=== PATIENT | male | born 1945 | race Caucasian/White ===

== ENCOUNTER → 2023-12-20 06:55 | Outpatient (REF) | payer MEDICARE, OTHER, SELFPAY | LOC: RAD 06:55 | PROVIDERS: ATTENDING PHYSICIAN Internal Medicine Critical Care Medicine; FAMILY PHYSICIAN Emergency Medicine | DX: R91.1 Solitary pulmonary nodule (principal) | CPT/HCPCS: 71250 ==

== ENCOUNTER 2024-05-17 22:28 | Inpatient (IN) | payer MEDICARE, OTHER, SELFPAY ==
[2024-05-17 20:48] VITALS: BP 130/75; BMI 26.5
[2024-05-17 20:59] LABS: Glucose - Point of Care 99 mg/dl (70-99)
[2024-05-17 21:08] LABS: % Basophils 0.6 % (0-2); % Eosinophils 4.6 % (0-6); % Immature Granulocytes 0.2 % (0-0.5); % Lymphocytes 27.9 % (20.5-51.1); % Monocytes 11.2 % (1.7-9.3); % Neutrophils 55.5 % (42.2-75.2); Absolute Basophils 0.1 10^3/uL (0-0.2); Absolute Eosinophils 0.4 10^3/uL (0-0.7); Absolute Lymphocytes 2.2 10^3/uL (1.2-3.4); Absolute Monocytes 0.9 10^3/uL (0.1-0.6); Absolute Neutrophils 4.4 10^3/uL (1.4-6.5); Hematocrit 42.7 % (39.0-52.0); Hemoglobin 15.5 g/dL (13.0-18.0); Mean Corp Hgb Conc. 36.3 g/dL (33.0-37.0); Mean Corpuscular Hgb 32.3 pg (27.0-31.0); Mean Platelet Volume 9.1 fL (7.4-10.4); Nucleated Red Blood Cells % 0 % (-); Platelet Count 177 10^3/uL (130-400); Red Cell Dist. Width 12.6 % (11.5-14.5)
--- NOTE | 2024-05-17 21:15 | ED.CVA ---
History of Present Illness
General
Chief Complaint: CVA/TIA Symptoms
Source: patient
Time Seen by Provider: 05/17/24 20:53
Nursing documentation reviewed up to this point in time: agreed with
Onset of Stroke Symptoms
Onset of symptoms known: Yes
Date of onset of symptoms: 05/17/24
History of Present Illness
History of Present Illness:
Pleasant 78-year-old male who presents with expressive aphasia. He took a nap around 7 PM. Awakened around 8 and could not find words to express himself. He states that this lasted approximately 20 minutes and then that resolved. Patient is not
on any blood thinners. Patient did have a fall last week from a syncopal episode and hit his head. He states that he has been fine ever since. Denies headaches. Patient is on antihypertensive medication. Denies any other medications.
Vital signs are stable. Patient not hypoxic
Nursing note reviewed. I agree with nursing documentation up to this point in time.
Home Meds and allergies reviewed.
NUMBER AND COMPLEXITY OF PROBLEMS ADDRESSED AT THE ENCOUNTER
� Chronic conditions affecting care: Hypertension
� Acute Exacerbation and/or Progression of Chronic Illness: New onset atrial fibrillation
� Differential Diagnosis includes: Expressive aphasia, CVA, TIA
AMOUNT AND/OR COMPLEXITY OF DATA TO BE REVIEWED AND ANALYZED
I performed an independent evaluation of the following and my interpretation is:
EKG: EKG shows atrial fibrillation with rapid ventricular response. Rate of 118. No evidence of acute ischemia present.
CT:
CT head
IMPRESSION:
No acute intracranial hemorrhage, mass or mass-effect.
Diffuse atrophy with ventriculomegaly.
CT angiogram head and neck
IMPRESSION:
Angiogram head:
No major arterial vascular occlusion.
No focal aneurysm.
Venous sinuses are patent.
Angiogram neck:
No major arterial vascular occlusion.
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 Mild fusiform dilatation of the carotid bulbs bilaterally. No hemodynamically significant stenosis, dissection or aneurysm.
Degenerative changes of the spine.
Emphysema of visualized upper lungs
X-rays:
Ultrasound:
Laboratory Studies:
BUN/creatinine normal
Other:
Review of other/old records: Colonoscopy report from 07/03/2018.
Clinical information was obtained by an independent historian:
Prescriptions/Medications Considered but not given: TNK not given as symptoms had resolved.
Further testing considered but not performed:
RISK OF COMPLICATIONS AND/OR MORBIDITY OR MORTALITY OF PATIENT MANAGEMENT
Social determinants of health affecting care: Good Social Support
Discussion with other providers: Dr. David Mishra neurologist who agreed with the plan. He suggested we give Eliquis due to the new onset atrial fibrillation. He does not feel that this person is a TNK candidate based on the
resolution of symptoms.
Escalation of care including admission/observation vs risk of discharge considered: Patient to be admitted to the hospital service. Expressive aphasia
CRITICAL CARE NOTE:
Total Time (exclusive of procedures):
Update:
Review of Systems
Review of Systems
Allergies reviewed?: Yes
Other source history: family
All Other Systems: Not applicable
Constitutional: Reports no symptoms
EENT: Reports no symptoms
Respiratory: Reports no symptoms
Cardiac: Reports no symptoms
ABD/GI: Reports no symptoms
: Reports no symptoms
Musculoskeletal: Reports no symptoms
Skin: Reports no symptoms
Neurological: Reports other (Aphasia); Denies headache, weakness or numbness
Endocrine: Reports no symptoms
Hematologic/Lymphatic: Reports no symptoms
Psychiatric: Reports no symptoms
Phy Exam
General Physical Exam
General Presentation: well appearing and no apparent distress
General Skin: warm and dry
General Habitus: normal
General Mental: alert
General Hydration: appears well hydrated
ENT Exam
ENT Exam: EOMI, pharynx normal, neck supple and normocephalic
Eye Exam
Eye Exam: PERRL, cornea clear and conjunctiva normal
Cardiovascular Exam
Cardiovascular Exam: no edema, no murmur, normal peripheral pulses and irregularly irregular
Pulmonary Exam
Pulmonary Exam: lungs clear, no respiratory distress, no rales, no crackles, no rhonchi, no stridor, no wheezing and no cough
Gastrointestinal Exam
Gastrointestinal Exam: normal bowel sounds, non tender, soft, no organomegaly, no pulsatile mass and non distended
Neurological Exam
Neurological Exam: alert, oriented x3, no motor deficits and speech normal
Musculoskeletal Exam
Musculoskeletal Exam: full ROM and no edema
Skin Exam
Skin Exam: normal color, warm/dry, no rash and no petechia
Psychiatric Exam
Psychiatric Exam: normal mood/affect
Scores
NIH Stroke Score
Level of Consciousness: 0 - Alert
LOC Questions: 0-Answers both correctly
LOC Commands: 0-Performs both correctly
Best Horizontal Gaze: 0-Normal
Visual Anguiano: 0=Normal, no visual loss
Facial Palsy: 0=Normal, symmetrical
Motor - Right Arm: 0=No drift 10 seconds
Motor - Left Arm: 0=No drift 10 seconds
Motor - Right Le-No drift 5 seconds
Motor - Left Le-No drift 5 seconds
Limb Ataxia: 0-Absent
Sensation: 0-Normal
Best Language: 1-Mild aphasia
Dysarthria: 0-Normal
Extinction and Inattention: 0-No abnormality
Total Score:: 1
Course
Orders/Labs/Results
Orders:
Orders
05/17/24 20:52
Electrocardiogram (*1) Urgent
Reason for Study: Other
Other Reason for Exam: Possible Stroke
Bedside Glucose- Treatment ONCE
EKG- Treatment ONCE
05/17/24 20:53
CT Head W/o Cont STROKE ALERT Urgent
Comment:
Reason For Exam: aphasia
CT Head/Neck Ang STROKE ALERT Urgent
Comment:
Reason For Exam: aphasia
05/17/24 21:01
Complete Blood Count/With Diff Urgent
Comprehensive Metabolic Panel Urgent
Glycohemoglobin (HgbA1c) Urgent
PTT Urgent
Prothrombin Time Urgent
Troponin I Urgent
05/17/24 21:17
Aspirin 325 mg PO NOW STA
Clopidogrel Bisulfate [Plavix] 300 mg PO NOW STA
05/17/24 21:19
Electrocardiogram (*1) Urgent
Reason for Study: Fatigue / Weakness
EKG- Treatment ONCE
05/17/24 21:28
Apixaban [Eliquis] 10 mg PO NOW STA
05/17/24 22:09
Admit/Transfer Patient As Directed
Co-Sign Provider:
Level of Care: Inpatient admission
Assign to:: Telemetry
Physician / Group: kerry
Diagnosis: new onset atrial fib
Reason for Telemetry: Arrhythmia
Date to Stop Telemetry: 05/20/24
Time to Stop Telemetry: 11:00
Reason for Hospitalization: new onset atrial fib
Expected length of stay greater than two midnights?: Yes
ELOS- Estimated Length of Stay in days: 3
I certify the patient meets the requirements for IP care: Yes
05/17/24 22:10
Code Status As Directed
Resuscitation Status: Full Code
05/17/24 22:51
Acetaminophen [Tylenol/Feverall] 650 mg RECTAL Q4HPRN PRN
Acetaminophen [Tylenol] 650 mg PO Q4HPRN PRN
05/17/24 22:51
Echo 2D MMode Color/Doppler Routine
Reason for Study: stroke/TIA
CARDIOLOGY CONSULT Routine
Consulting Provider: Anselmo Calixto
Was physician already notified: No
Reason for consult: new onset atrial fib
Case Management Consult ONCE
Case Management Consult: Discharge Planning
Comment: stroke/tia
Consult Notification Routine
Specialty to Notify: Cardiology
DIETARY CONSULT Routine
Reason for Consult: stroke/TIA
NEUROLOGY CONSULT Urgent
Consulting Provider: David Mishra
Was physician already notified: Yes
Energy Trading Analyst Urgent
Activity As Directed
Activity Level: As Tolerated
NIH Stroke Scale As Directed
Directions: Per protocol
Comment: every shift and with any change in condition or mental status
Neurological Checks As Directed
Frequency: q4h
Additional Instructions:: q4h x 24h upon admission to the floor, then qshift & with any change in condition
and mental status
Patient Education As Directed
Type: Stroke education packet
Comment: provide to patient and family
Vital Signs As Directed
Frequency: Per unit guidelines
Ot Eval And Treat Routine
Pt Eval And Treat Routine
Activity Level: As Tolerated
Speech Therapy Eval & Treat Routine
05/17/24 23:00
Atorvastatin [Lipitor] 40 mg PO QPM
05/18/24 06:00
Basic Metabolic Panel IN AM
Cardiovascular Evaluation IN AM
Complete Blood Count/No Diff IN AM
TSH Reflex To Free T4 IN AM
05/18/24 08:00
Apixaban [Eliquis] 5 mg PO BID
05/19/24 06:00
Basic Metabolic Panel IN AM
Complete Blood Count/No Diff IN AM
05/20/24 06:00
Basic Metabolic Panel IN AM
Complete Blood Count/No Diff IN AM
05/20/24 11:00
DC Protocol for Telemetry ONCE
05/21/24 06:00
Basic Metabolic Panel IN AM
Complete Blood Count/No Diff IN AM
05/22/24 06:00
Basic Metabolic Panel IN AM
Complete Blood Count/No Diff IN AM
Abnormal Lab Results
05/17/24
21:01
MCH 32.3 H pg
(27.0-31.0)
Absolute Monos (auto) 0.9 H 10^3/uL
(0.1-0.6)
Monocytes % 11.2 H %
(1.7-9.3)
Total Bilirubin 1.7 H mg/dl
(0.2-1.3)
05/17/24 21:01
05/17/24 21:01
Vital Signs
Initial and Last Documented VS:
Initial Vital Signs
Temp Pulse Resp BP Pulse Ox
98 F 70 16 130/75 97
05/17/24 20:48 05/17/24 20:48 05/17/24 20:48 05/17/24 20:48 05/17/24 20:48
Last Documented Vital Signs
Temp Pulse Resp BP Pulse Ox
97.8 F 97 18 169/102 98
05/17/24 22:50 05/17/24 22:50 05/17/24 22:50 05/17/24 22:50 05/17/24 22:50
*Radiology
Radiology exam reviewed: radiology read reviewed
*Pulse Oximetry
Patient hypoxic: no
*Critical Care Note
Total Time (30-74mins, 75-104mins- exclusive of procedures): 35
comment:
Critical care statement: A total of 35 minutes of critical care time was provided for this patient. This time is separate from time utilized to perform the aforementioned documented procedures. Aggregate critical care time includes only time
during which I was engaged in work directly related to the patient's care, as described above, whether at the bedside or elsewhere in the Emergency Department.
Patient Management
Social determinants of health affecting care: Strong social support
Discussion with other providers: Hospitalist and Crew Scheduler
Update Note
Update Note:
Spoke with Dr. David Mishra, neurology who based on symptoms states that patient is not a candidate for TNK. Request aspirin and Plavix. CT angio of the head. Admission
ED Attending Note
-
Portions of this chart may have been created with voice recognition software.� Occasional wrong word or��sound alike� substitutions may have occurred due to the inherent limitations of voice recognition software.
Discharge Plan
Departure
Patient Disposition: Admit
Date of Disposition: 05/17/24
Time of Disposition: 21:41
Admit to: Telemetry
Presentation/result/management discussed w/ accepting MD/DO: Hospitalist
Condition: Fair
Discharge Problem:
Expressive aphasia, Atrial fibrillation, new onset
Interventions
Interventions:
*Risk Screen - Suicide Last Done: 05/17/24 20:48
*Neglect/Abuse Screening Last Done: 05/17/24 20:48
ED- Fall Risk Assessment Last Done: 05/17/24 21:27
*ED COVID-19 Vaccine History Last Done: 05/17/24 22:57
*Nursing Disposition Last Done: 05/17/24 22:37
ED- Pulmonary Assessment Last Done: 05/17/24 21:27
ED- Neurological Assessment Last Done: 05/17/24 21:26
ED- Cardiac Assessment Last Done: 05/17/24 21:27
ED Swallowing Screen Last Done: 05/17/24 21:27
Discharge Date and Time
Discharge Date/Time: 05/17/24 22:38
[2024-05-17 21:18] LABS: INR 1.06; PT 13.7 Sec (11.4-14.6)
[2024-05-17 21:19] LABS: APTT 29.6 Sec (23.4-35.0)
[2024-05-17 21:27] LABS: ALT (SGPT) 17 U/L (0-50); AST (SGOT) 26 U/L (17-59); Albumin 4.5 g/dl (3.5-5.0); Alkaline Phosphatase 62 U/L (38-126); Blood Urea Nitrogen 18 mg/dl (9-20); Calcium 8.8 mg/dl (8.4-10.2); Carbon Dioxide 27 mmol/L (22-30); Chloride 105 mmol/L (98-107); Estimated Creatinine Clearance 68 ml/min; Glucose 95 mg/dl (70-99); Potassium 4.2 mmol/L (3.5-5.1); Sodium 138 mmol/L (135-145); Total Bilirubin 1.7 mg/dl (0.2-1.3); Total Protein 6.9 g/dl (6.3-8.2); eGFR > 60.00
[2024-05-17] MEDS: ELIQUIS 10 MG PO (21:31)
[2024-05-17 21:32] LABS: Troponin I < 0.012 ng/ml
[2024-05-17 21:46] VITALS: BP 120/72
--- NOTE | 2024-05-17 21:50 | HPS.HSE ---
Addendum entered and electronically signed by Juan David Perez DO 05/17/24 22:51:
Patient seen and examined independently. Agree with findings and plan as set forth by MICHAEL Cary.
Patient is a 78y M with PMH significant for hypertension who presents to ED for evaluation of speech difficulty. Patient states that he was feeling very well today when he took an afternoon nap. He woke from his nap and noted that he was
unable to answer questions appropriately. Patient states that he knew what he wanted to say but was unable to produce the words. He denies any prior history of similar issues. He had no headache, vision changes and no focal numbness or weakness.
His symptoms lasted for a total of 20 minutes and resolved in the car en route to the ED.
On evaluation in the ED, patient is noted to be in A-Fib which is new for him. He has no palpitations, chest pain, etc.
Patient takes losartan for high blood pressure. He has rare episodes of syncope which have been attributed to 'standing up too fast'. He had one such episode about two weeks ago and struck his head during his fall. He had no symptoms following
that until today.
Ass:
Expressive Aphasia - CVA v TIA
Atrial Fibrillation - New
Benign Hypertension
Plan:
Admit for further evaluation and treatment.
Begin Eliquis 5mg PO BID for A-Fib / stroke risk reduction.
Rates at present are hovering around 100 bpm and not requiring rate control agents.
Would be cautious with rate-controlling agents so as not to elicit hypotension in setting of possible acute CVA / TIA.
Neurology evaluation / MRI in the AM.
Cardiology evaluation for additional recommendations.
Check Echo.
Hold losartan acutely. Will likely be replaced by beta-blockade or similar given A-Fib.
Follow for changes in neuro exam / recurrent symptoms.
Original Note:
Family Physician
-
Family Physician: Eryn Domingo MD
Chief Complaint
-
expressive aphasia
History of Present Illness
78 year old with PMH for HTN presented to us with expressive aphasia as he work up from sleep. patient wanted to say something but he was not able to express. it lasted for 20minutes. denied any focal weakness. denied any SHANKS or dizzy today. last
week, he got up from sleep, he synopsized and hit the head on the door. denied fever, chills, chest pain, sob. denied abdominal pain, n,v,d. denied dysuria or hematuria.
head/neck CTA and head CT pending. received a dose of eliquis in ER. admitting for further management.
Medical History
Past Medical History
Past Medical History: Reports Other
Additional Past Medical History:
htn
Past Surgical History: Reports None
Social History
Tobacco: Non-smoker
Alcohol: Daily
Drug: None
Personal:
Living: With Family
Employment: Employed
Family History
Family History: Not pertinent
Allergies / Home Medications
Allergies reflects when Allergies were last updated in [facility].
Home Medications with original date entered in [facility]
Allergy/Medication List:
Allergies
Allergy/AdvReac Type Severity Reaction Status Date / Time
No Known Allergies Allergy Unverified 05/17/24 20:50
Review of Systems
-
Constitutional: Reports No Symptoms
EENT: Reports No Symptoms
Respiratory: Reports No Symptoms
Cardiac: Reports No Symptoms
Abdomen/GI: Reports No Symptoms
: Reports No Symptoms
Musculoskeletal: Reports No Symptoms
Skin: Reports No Symptoms
Neurological: Reports Other (expressive aphasia)
Endocrine: Reports No Symptoms
Hematologic/Lymphatic: Reports No Symptoms
Psych: Reports No Symptoms
Physical Exam
Vital Signs
Vital Signs
Temp Pulse Resp BP Pulse Ox
98 F 100 22 120/72 97
05/17/24 20:48 05/17/24 21:46 05/17/24 21:46 05/17/24 21:46 05/17/24 21:46
Physical Exam
General: Well Developed, Well Nourished and No Apparent Distress
HEENT: NormoCephalic, Moist mucous membranes and Atraumatic
Respiratory: Clear
Cardiac: Irregular Rhythm and Tachycardia; No Murmur or Rub
GI: Soft, Non Tender, Non Distended and Normal Bowel Sounds; No Organomegaly
Rectal: Deferred by Provider
Musculoskeletal: No Clubbing, No Cyanosis and No Edema
Skin: No Rash
Neuro: AO x 3 and Nonfocal/grossly intact
Psych: Calm
Laboratory Results
-
05/17/24 21:01
05/17/24 21:01
Laboratory Results
PT 13.7 Sec (11.4-14.6) 05/17/24 21:01
INR 1.06 05/17/24 21:01
APTT 29.6 Sec (23.4-35.0) 05/17/24 21:01
Total Bilirubin 1.7 mg/dl (0.2-1.3) H 05/17/24 21:01
AST 26 U/L (17-59) 05/17/24 21:01
ALT 17 U/L (0-50) 05/17/24 21:01
Alkaline Phosphatase 62 U/L (38-126) 05/17/24 21:01
Troponin I < 0.012 ng/ml 05/17/24 21:01
Data Reviewed
-
Lab Data: Labs Reviewed by me
Impression/Plan
-
#new onset atrial fib
-EKg on arrival atrial fib with RVR
-HR in 100-120
-initiated on eliquis 5mg bid as per neurology
-ECHO
-cardiology consulted
#new onset expressive aphasia
-head CT pending
-head/neck CTA pending
-obtain A1c,lipid profile
-statin continued
-neurology
#essential HTN
-hold losartan
-allow permissive HTN
#DVT prophylaxis
-eliquis
#CODE status
-full code
[2024-05-17 22:00] VITALS: BP 140/97
[2024-05-17 22:50] VITALS: BP 169/102; BMI 27.9
--- NOTE | 2024-05-17 23:42 | PTCARENOTE ---
Patient arrived from ER and oriented to room. Blood pressure 169/102. HR on color television console monitor 100`s-120`s. HR did briefly increase to 140`s, but didn`t sustain. NIH score was 0. ROSE Mendez made aware of patient`s vitals. No new orders.
[2024-05-17] MEDS: LIPITOR 40 MG PO (23:48)
[2024-05-18] VITALS (7 sets, daily range): BP systolic 103–137; BP diastolic 67–93; PULSE 89–135; O2SAT 99
[2024-05-18 07:38] LABS: Blood Urea Nitrogen 19 mg/dl (9-20); Calcium 8.2 mg/dl (8.4-10.2); Carbon Dioxide 24 mmol/L (22-30); Chloride 107 mmol/L (98-107); Estimated Creatinine Clearance 75 ml/min; Glucose 89 mg/dl (70-99); HDL Cholesterol 34 mg/dl; LDL Cholesterol, Calculated 116 mg/dl; Potassium 4.2 mmol/L (3.5-5.1); Sodium 137 mmol/L (135-145); Total Cholesterol 193 mg/dl (50-199); Triglyceride 216 mg/dl (10-149); Very Low Density Lipoprotein 43 mg/dl (0-30); eGFR > 60.00
[2024-05-18 07:42] LABS: Hematocrit 39.3 % (39.0-52.0); Hemoglobin 14.4 g/dL (13.0-18.0); Mean Corp Hgb Conc. 36.6 g/dL (33.0-37.0); Mean Corpuscular Hgb 32.7 pg (27.0-31.0); Mean Corpuscular Volume 89.1 fL (80.0-94.0); Mean Platelet Volume 9.5 fL (7.4-10.4); Platelet Count 170 10^3/uL (130-400); Red Blood Cell Count 4.41 10^6/uL (4.70-6.10); Red Cell Dist. Width 12.7 % (11.5-14.5); White Blood Cell Count 5.8 10^3/uL (4.8-10.8)
[2024-05-18 08:09] LABS: TSH Reflex To Free T4 2.16 uIU/ml (0.47-4.68)
--- NOTE | 2024-05-18 08:27 | W.PN.HOSP.TC ---
Today's Communication/Plan
-
see bold
Assessment / Plan
Assessment / Plan
Gen: NAD, AAOx3.
Eyes: EOMI, PERRLA, no scleral icterus.
Neck: supple.
CV: tachy, irreg/irreg, +S1/S2, no m/r/g.
Resp: CTAB, no rales, wheezes, or rhonchi.
Abd: +BS, soft, NT, ND
Skin: No rashes.
Neuro: CN 2-12 intact, non-focal.
Psych: Normal mood and affect.
CT brain: No evidence of acute intracranial abnormality.
CTA head/neck: Mild atherosclerotic disease involving the carotid bulbs and proximal internal carotid arteries bilaterally, with less than 25% diameter reduction. Normal appearance of the anterior cerebral and middle cerebral arteries with no
evidence for large vessel occlusion. No significant narrowing of the vertebral or basilar arteries. No evidence for arterial dissection. Incidental note is made of changes of emphysema within the visualized upper lungs. Degenerative changes of the
cervical spine.
New onset atrial fibrillation with RVR:
-Eliquis started
-check echo
-c/s cards
-HR currently 100s. Will hold off starting BB/Cardizem, etc as SBP 120s and want to allow for permissive HTN
Expressive aphasia:
-CT brain and CTA head/neck unremarkable
-check MRI brain
-Eliquis started
-cont statin
-c/s neuro
Essential HTN:
-holding losartan to allow for permissive HTN
FULL/Eliquis
Anticipated Discharge: Within 24 hours
Subjective/Interval History
-
Date of Service: May 18, 2024
No new complaints.
Objective Data
-
Labs:
Laboratory Results
05/17/24 05/18/24
21:01 06:43
WBC 8.0 5.8
Hgb 15.5 14.4
Hct 42.7 39.3
Plt Count 177 170
PT 13.7
INR 1.06
APTT 29.6
Sodium 138 137
Potassium 4.2 4.2
Chloride 105 107
Carbon Dioxide 27 24
BUN 18 19
Creatinine 1.0 0.9
Glucose 95 89
Calcium 8.8 8.2 L
Total Bilirubin 1.7 H
AST 26
ALT 17
Alkaline Phosphatase 62
Vital Signs:
Vital Signs
Temp Pulse Resp BP Pulse Ox
97.8 F 87 16 128/78 97
05/18/24 07:00 05/18/24 07:00 05/18/24 07:00 05/18/24 07:00 05/18/24 07:00
[2024-05-18] MEDS: ELIQUIS 5 MG PO ×2 (08:42→20:02)
--- NOTE | 2024-05-18 09:14 | PTOTSP ---
Patient demonstrates safe and independent mobility including stairs, no skilled PT needed at this time.
[2024-05-18 11:24] LABS: Glycohemoglobin (HgbA1c) 5.1 % (4.0-5.6)
--- NOTE | 2024-05-18 12:21 | CON.CAR ---
Consultation
Consultation Request
Date/Time Consultation Requested: May 18, 2024
Date/Time Consultation Performed: May 18, 2024
Requesting Provider: Hospitalist
Performing Provider: Dylan
Reason for Consultation: New atrial fibrillation and TIA
Medical History
-
Chief Complaint: New atrial fibrillation and TIA
History of Present Illness:
78-year-old male who is seen in the presence of his for 25 minutes of expressive aphasia yesterday which spontaneously resolved. Upon presentation he had neurologic symptoms that had completely resolved and he was noted to be in atrial
fibrillation. He is not symptomatic with dyspnea on exertion chest pain pressure or other symptoms and signs of symptomatic atrial fibrillation. 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
recently. Results of testing so far noted demonstrating no significant carotid disease bilaterally and his antihypertensives are being held to allow for permissive hypertension. He was only on losartan for high blood pressure.
Past Medical History
Past Medical History: Arrhythmias
Social History
Tobacco: Former Smoker
Alcohol: None
Drug: None
Personal:
Living: With Family
Employment: Employed
Family History
Family History: Reviewed & Not Pertinent
Allergies / Home Medications
Allergy/AdvReac Type Severity Reaction Status Date / Time
No Known Allergies Allergy Unverified 05/17/24 20:50
�Medication �Instructions �Recorded �Confirmed �Type
losartan 25 mg tablet 25 mg PO DAILY Blood Pressure 05/17/24 05/17/24 History
Review of Systems
-
All other systems: Negative unless noted
Physical Exam
Vital Signs
Temp Pulse Resp BP Pulse Ox
98.1 F 86 16 134/86 96
05/18/24 11:00 05/18/24 11:00 05/18/24 11:00 05/18/24 11:00 05/18/24 11:00
Lab Results
05/18/24 06:43
05/18/24 06:43
Troponin I < 0.012 ng/ml 05/17/24 21:01
Physical Exam
General: Well Developed and Well Nourished
HEENT: Normocephalic and Anicteric
Respiratory: Clear
Cardiac: S1/S2 and Regular Rhythm
Breast: Deferred by me
GI: Soft, Non Tender and Non Distended
Rectal: Deferred by Provider
Musculoskeletal: No Clubbing and No Cyanosis
Skin: Warm and Dry
Neuro: Awake, Alert and Oriented
Hematologic/Lymphatic: No Lymphadenopathy
Psych: Calm
Impression / Plan
-
Impression:
TIA
New onset atrial fibrillation
Hypertension
Recommendations:
Agree with oral anticoagulation
Reasonable to perform neurologic consultation
Agree with brain MRI
Agree with echo
His heart rates are modestly elevated and would start Toprol XL 25 mg daily when okay per internal medicine
This can be in addition to his losartan
Our team will follow with you and he will be arranged for an outpatient visit with me in 6 to 8 weeks and we would complete cardiac testing. Reasonable to consider outpatient ischemic evaluation and ambulatory monitor to assess for heart rate
control and overall burden for arrhythmia. We discussed in broad strokes and did have a conversation about rate and rhythm control strategies including rhythm control strategies with antiarrhythmic medication and ablation therapy. Given his recent
neurologic event we would not pursue rhythm control in the near term given the asymptomatic nature of his atrial fibrillation.
Data Reviewed
-
EKG: Tracing Personally Visualized and interpreted
Radiology: Image Personally Visualized and interpreted
Medical Tests (Nuc Med, Echo etc): Report Reviewed by me
Labs: Labs Reviewed by me
Old Records: Reviewed
--- NOTE | 2024-05-18 12:57 | CM ---
Patient with Dx New onset atrial fibrillation with RVR, Expressive aphasia. MRI Brain today. PT; No skilled PT needed. OT & ST Fuad pending.
Met with patient and Zarina;
the patient resides with his in a 2 story house with 5 SHELBI.
The patient has been independent in ADLs and ambulation.
He has no DME, prior VN or SNF.
PCP - Eryn Domingo
Pharmacy - [facility]
Plan follow up after seen by OT & ST.
Plan home.
--- NOTE | 2024-05-18 13:27 | PTOTSP ---
Speech Therapy
Presentation: Patient's speech and language appeared to be WNL during informal conversation with IP ATTORNEY. During object naming task, patient was able to identify the name and function of 15/15 items without any overt difficulty. Patient reports his
speech, language and cognition to be back to baseline.
Swallowing Function: IP ATTORNEY observed patient with several bites of cracker and sips of thin liquids in which patient appeared to tolerate as he did not exhibit any overt clinical s/sx of aspiration or difficulty with mastication. Patient denied
dysphagia complaints.
Recommendations:
1) Continuation of current diet (regular consistency solids and thin liquids)
2) Standard aspiration precautions
3) Medications as tolerated
Plan: No further IP ATTORNEY intervention is indicated at this time. Please re-consult if clinically indicated.
--- NOTE | 2024-05-18 16:09 | CON.NEURO4 ---
Consultation - Neurology 4
-
CONSULTING PHYSICIAN: David Mishra MD (Neurology)
REFERRING PHYSICIAN: Hospitalist
DICTATED BY: David Mishra MD
DATE/TIME OF REQUEST: 05/17/2024
DATE/TIME OF CONSULTATION: 05/18/2024
Reason for Consultation: Aphasia
History of Present Illness:
This is a 78 year old right handed male who has presented to the hospital with aphasia. He gives a h/o HTN and had been in his USOH till yesterday evening when he took a nap at 7p. When he woke at 8 p his speech was unintelligible. This episode
lasted for 20 minutes. His was unable to communicate. She brought him to the ER. In the ER he was asymptomatic.he had an occasional word finding issue No headaches dizziness. Numbness or weakness of face arm or legs . No difficulty standing
walking. No loss of balance or incoordination. His EKG revealed atrial fibrillation. I recommended that he be placed on Eliquis
At the time of my exam, he is asymptomatic without any speech motor or sensory impediment
-
Past Medical History: HTN
Surgical History: None
Family History: NC
Social History: lives at home with his
Allergies: NKA
Home Medications: Eliquis
Review of Symptoms:
Patient denies any fever, headache, chest pain, shortness of breath, GI or symptoms.
�Per the HPI.�All systems are reviewed negative except above.
�-
Vital Signs:
.
Physical Exam:
The patient is afebrile, heart sounds S1 and S2 are irregular, and chest is clear to auscultation bilaterally.
- If not clear, describe.
NIH Stroke Scale :0
Neurologic Examination:
The patient is awake, alert and oriented x 3. (He/She) is able to follow commands and answer questions appropriately. There is no aphasia or dysarthria. On cranial nerve assessment, pupils are 3 mm bilateral, round and reactive to light and
accommodation. Visual maharaj are full. Extraocular movements are intact. Facial sensations are intact and bilaterally symmetrical, there is no facial asymmetry. Hearing is intact bilaterally to normal conversation volume. Tongue palate and uvula
are midline. Sternocleidomastoid strengths are full bilaterally. Motor strengths are 5/5 bilateral upper and lower extremities on medical research [place] scale. There is no drift or involuntary movement noted. Deep tendon reflexes are 2+ bilateral
upper and lower extremities and Babinski is absent bilaterally. Sensations of pain, touch, temperature and vibration are intact and bilaterally symmetrical. There was no extinction noted on double simultaneous stimulation. Coordination is intact by
finger to nose bilaterally.
Lab Results:
Neuro Imaging:
Impression:
(Mr. / Ms.) EVELINA KIM is a 78 year old M who has presented to the hospital with brief episode of aphasia prior to admission with new onset atrial fibrillation. He most likely suffered a TIA in the left MCA
Recommendations:
1. Eliquis 5mg BID
2. Lipitor
3. Speech therapy
4. MRI head
5. Echo cardiogram
6. Cardiology eval
Discussed patient care with: Hospitalist
Total Time Spent with Patient (in minutes): 30
Vital Signs and Labs
-
Vital Signs and Labs:
Vital Signs
Temp Pulse Resp BP Pulse Ox
36.7 C 86 16 134/86 96
05/18/24 11:00 05/18/24 11:00 05/18/24 11:00 05/18/24 11:00 05/18/24 11:00
Lab Results
05/18/24 06:43
05/18/24 06:43
PT 13.7 Sec (11.4-14.6) 05/17/24 21:01
INR 1.06 05/17/24 21:01
APTT 29.6 Sec (23.4-35.0) 05/17/24 21:01
Sodium 137 mmol/L (135-145) 05/18/24 06:43
Potassium 4.2 mmol/L (3.5-5.1) 05/18/24 06:43
BUN 19 mg/dl (9-20) 05/18/24 06:43
Glucose 89 mg/dl (70-99) 05/18/24 06:43
Calcium 8.2 mg/dl (8.4-10.2) L 05/18/24 06:43
LDL Cholesterol, Calc 116 mg/dl 05/18/24 06:43
[2024-05-18] MEDS: LIPITOR 40 MG PO (18:32)
[2024-05-19 03:27] VITALS: BP 101/57
[2024-05-19 07:35] LABS: Hematocrit 43.2 % (39.0-52.0); Hemoglobin 15.7 g/dL (13.0-18.0); Mean Corp Hgb Conc. 36.3 g/dL (33.0-37.0); Mean Corpuscular Hgb 32.4 pg (27.0-31.0); Mean Corpuscular Volume 89.3 fL (80.0-94.0); Mean Platelet Volume 9.1 fL (7.4-10.4); Platelet Count 187 10^3/uL (130-400); Red Blood Cell Count 4.84 10^6/uL (4.70-6.10); Red Cell Dist. Width 12.6 % (11.5-14.5); White Blood Cell Count 6.9 10^3/uL (4.8-10.8)
[2024-05-19 08:05] VITALS: BP 128/78
[2024-05-19] MEDS: ELIQUIS 5 MG PO (08:21)
[2024-05-19 08:23] LABS: Blood Urea Nitrogen 18 mg/dl (9-20); Calcium 8.7 mg/dl (8.4-10.2); Carbon Dioxide 22 mmol/L (22-30); Chloride 108 mmol/L (98-107); Estimated Creatinine Clearance 68 ml/min; Glucose 95 mg/dl (70-99); Potassium 4.2 mmol/L (3.5-5.1); Sodium 139 mmol/L (135-145); eGFR > 60.00
--- NOTE | 2024-05-19 09:05 | W.PN.HOSP.TC ---
Today's Communication/Plan
-
Probable discharge today
Assessment / Plan
Assessment / Plan
CT brain: No evidence of acute intracranial abnormality.
CTA head/neck: Mild atherosclerotic disease involving the carotid bulbs and proximal internal carotid arteries bilaterally, with less than 25% diameter reduction. Normal appearance of the anterior cerebral and middle cerebral arteries with no
evidence for large vessel occlusion. No significant narrowing of the vertebral or basilar arteries. No evidence for arterial dissection. Incidental note is made of changes of emphysema within the visualized upper lungs. Degenerative changes of the
cervical spine.
New onset atrial fibrillation with RVR:
-Eliquis started
-Echocardiogram requested, cardiology recommending Toprol-XL
-Discharge today
Expressive aphasia/TIA:
-CT brain and CTA head/neck unremarkable
-Brain MRI negative
-Eliquis started
-LDL 116, started on Lipitor 40 mg at bedtime
-Appreciate neurology input
Essential HTN:
-Normotensive off of losartan, likely can maintain off upon discharge
DVT prophylaxis�Eliquis
Full code
Physical exam
Gen: NAD, AAOx3.
Eyes: EOMI, PERRLA, no scleral icterus.
Neck: supple.
CV: tachy, irreg/irreg, +S1/S2, no m/r/g.
Resp: CTAB, no rales, wheezes, or rhonchi.
Abd: +BS, soft, NT, ND
Skin: No rashes.
Neuro: CN 2-12 intact, non-focal.
Psych: Normal mood and affect.
Anticipated Discharge: Today
Subjective/Interval History
-
Date of Service: May 19, 2024
No more recurrence of expressive aphasia. No fever, no vomiting. No chest pain, no shortness of breath. No weakness.
Objective Data
-
Labs:
Laboratory Results
05/19/24
07:15
WBC 6.9
Hgb 15.7
Hct 43.2
Plt Count 187
Sodium 139
Potassium 4.2
Chloride 108 H
Carbon Dioxide 22
BUN 18
Creatinine 1.0
Glucose 95
Calcium 8.7
Vital Signs:
Vital Signs
Temp Pulse Resp BP Pulse Ox
97.5 F 92 18 128/78 97
05/19/24 08:05 05/19/24 08:05 05/19/24 08:05 05/19/24 08:05 05/19/24 08:05
I&O
05/18/24 05/19/24 05/20/24
06:59 06:59 06:59
Intake Total 1260 / 1260
Balance 1260 / 1260
--- NOTE | 2024-05-19 11:02 | CM ---
Addendum entered by Angelia Kelsey 05/19/24 16:14:
CM checked cost of Eliquis, per pharmacist, $550, updated Doctor. Patient aware of cost, provided with Eliquis 30 day coupon and assistance information. present for conversation.
Original Note:
Patient seen bedside, reports no needs to CM at this time. IMM reviewed, signed, placed in chart. CM will continue to follow for all discharge planning needs.
Plan; home no needs.
[2024-05-19 11:36] VITALS: BP 124/68
--- NOTE | 2024-05-19 12:46 | W.PN.CARDCBS ---
Addendum entered and electronically signed by Dayo Davies DO 05/19/24 15:26:
I saw and examined the patient.
The Transmission Assembler's note was reviewed and I agree with the note.
Comment:
Plan:
Toprol XL 25 mg daily for better HR control.
New to Eliquis
Echo with EF 45-50% and mild MR, mod AR and mild TR.
Outpt BardyCAM, stress test and EP follow up.
Stable for d/c from cardiac standpoint.
Original Note:
Today's Communication / Plan
-
Toprol XL 25 mg daily starting now
New to Eliquis 5 mg BID, asking CM to check on cost
Arranging outpatient CAM, stress test and Ep follow-up
Impression / Plan
-
PCP: Dr. Domingo
Cardiology: None prior to admission
Pulm: Dr. Farfan
Impression:
TIA
Newly diagnosed paroxysmal Afib
Moderate aortic regurgitation with dilated aortic root by echo 05/19/24
Hypertension
Echo 05/19/24: EF 45-50% with global hypokinesis, enlarged RV size, mild MR, moderate aortic regurgitation, mild TR with PAP 15 to 20 mmHg, dilated aortic root with normal ascending aorta
Recommendations:
-Patient admitted to after dysarthria on admission 05/17/24. MRI brain without evidence of CVA. Cardiology then consulted for new Afib.
-Remains in Afib with HRs in the 80s at rest prior to receiving his first dose of Toprol XL 25 mg daily with first dose ordered now.
-Given his recent neurologic event we would not pursue rhythm control in the near term given the asymptomatic nature of his atrial fibrillation.
-New to Eliquis 5 mg BID. Will ask CM to check on cost
-Outpatient dose of losartan 25 mg daily has been on hold since admission
-Patient had echo 05/19/24 and preliminary report indicates that EF 45-50% with global hypokinesis.
-Will arrange for an outpatient 5 day CAM/Bardy monitor that will be mailed to patient at home and when finished he can mail back to office in a postage-paid envelope.
-Will arrange for an outpatient exercise nuclear stress test to be completed prior to his appt with Dr. Richardson
-Will arrange for an appt with EP/Dr. Richardson in June or July.
HPI: 78-year-old male who is seen in the presence of his for 25 minutes of expressive aphasia yesterday which spontaneously resolved. Upon presentation he had neurologic symptoms that had completely resolved and he was noted to be in atrial
fibrillation. He is not symptomatic with dyspnea on exertion chest pain pressure or other symptoms and signs of symptomatic atrial fibrillation. 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
recently. Results of testing so far noted demonstrating no significant carotid disease bilaterally and his antihypertensives are being held to allow for permissive hypertension. He was only on losartan for high blood pressure.
Progress Note - [place]
Subjective
Date of Service: May 19, 2024
He feels like his speech is back to baseline
Objective
Labs:
05/19/24 07:15
05/19/24 07:15
Labs
Hgb 15.7 g/dL (13.0-18.0) 05/19/24 07:15
Hct 43.2 % (39.0-52.0) 05/19/24 07:15
Plt Count 187 10^3/uL (130-400) 05/19/24 07:15
PT 13.7 Sec (11.4-14.6) 05/17/24 21:01
INR 1.06 05/17/24 21:01
APTT 29.6 Sec (23.4-35.0) 05/17/24 21:01
Sodium 139 mmol/L (135-145) 05/19/24 07:15
Potassium 4.2 mmol/L (3.5-5.1) 05/19/24 07:15
BUN 18 mg/dl (9-20) 05/19/24 07:15
Creatinine 1.0 mg/dL (0.7-1.3) 05/19/24 07:15
Glucose 95 mg/dl (70-99) 05/19/24 07:15
Troponins
05/17/24
21:01
Troponin I < 0.012
Vital Signs and I&O:
Vital Signs
Temp Pulse Resp BP Pulse Ox
97.5 F 89 16 124/68 97
05/19/24 11:36 05/19/24 11:36 05/19/24 11:36 05/19/24 11:36 05/19/24 11:36
Vital Signs
Temp Pulse Resp BP Pulse Ox
97.5 F 89 16 124/68 97
05/19/24 11:36 05/19/24 11:36 05/19/24 11:36 05/19/24 11:36 05/19/24 11:36
Intake & Output
05/17/24 05/18/24 05/19/24 05/20/24
06:59 06:59 06:59 06:59
Intake Total 1260 / 1260
Balance 1260 / 1260
Physical Exam
Physical Exam
GEN: AAOx3
HEENT: mmm
LUNGS: No audible wheeze
CV: Afib with controlled VR on tele
ABD: ND
EXT: No edema B/L
NEURO: Gross non-focal
SKIN: No rash
[2024-05-19] MEDS: TOPROL XL 25 MG PO (14:56)
--- NOTE | 2024-05-19 15:31 | W.DCSUMMARY ---
Discharge Summary
Discharge Data
Date of Admission: 05/17/24
Date of Discharge: 05/19/24
-
Pending Results: No
Hospital Course
Discharge diagnosis:
New onset atrial fibrillation
Transient ischemic attack/expressive aphasia
Benign essential hypertension
Consults: Cardiology, neurology
Brain MRI:
No evidence of acute intracranial abnormality.
Small arachnoid cyst in the anterior aspect of the right middle cranial fossa.
Echocardiogram:
Normal left ventricular chamber size. Mild concentric left ventricular
hypertrophy. Mildly reduced to low normal left ventricular systolic function.
Global hypokinesis. LV ejection fraction is 45-50%.
Mild mitral regurgitation.
Moderate aortic regurgitation.
Mild tricuspid regurgitation.
No prior study available for comparison.
Hospital course:
78-year-old male with a past medical history of hypertension was admitted for transient speech difficulties. By the time he got to the hospital, his speech difficulties resolved. He was found to have new onset atrial fibrillation. Patient's heart
rate was controlled without any rate controlling agents.
Patient was seen in conjunction with cardiology. He was started on Eliquis 5 mg twice a day, and Toprol XL 25 mg daily. Echocardiogram was performed, results as above. Cardiology recommends outpatient follow-up for 5 day CAM/Bardy monitor, stress
test, and possibly EP evaluation.
Patient was on losartan 25 mg daily for his high blood pressure at home, which was held in the hospital to allow for permissive hypertension for possible stroke. Patient was normotensive off of his losartan. Recommend that he remain off of it upon
discharge.
Patient was seen in conjunction with neurology, who suspects he had a transient ischemic attack. He did not have any recurrence of his symptoms. Brain MRI was negative for acute CVA. His LDL was elevated at 116. He was started on Lipitor 40 mg
at bedtime.
Patient is medically stable for discharge. He needs to follow-up with his primary care doctor in 1 week, as well as cardiology and as directed.
Disposition: Home self-care
Discharge planning: Required 42 minutes
Discharge Plan
-
Patient Disposition: Home (Routine Discharge)
Discharge Diagnosis/Procedures: New onset atrial fibrillation, transient ischemic attack, benign essential hypertension
Condition: Good
Diet: Low Fat and Low Cholesterol
Activity: As tolerated
Driving Restrictions: As prior to admission
Activity Restrictions/Additional Instructions:
You had a transient ischemic attack, or a mini stroke.
You need to take atorvastatin/Lipitor 40 mg at bedtime, as well as Eliquis to prevent your risk of future stroke.
Please follow-up with cardiology in the office for stress test and monitoring. They will call you for an appointment.
Please follow-up with your primary care doctor in 1 week.
Instructions: Transient ischemic attack, Atrial Fibrillation (DC)
Referrals:
Eryn Domingo MD [Family Provider] - in one week
Tad Richardson MD [Active] - 07/08/24 9:40 am
Prescriptions:
New
Eliquis 5 mg Tablet
5 mg PO BID Qty: 60 11RF
metoprolol succinate 25 mg Tablet Extended Release 24 Hr
25 mg PO DAILY Qty: 30 11RF
atorvastatin 40 mg Tablet
40 mg PO QPM Qty: 30 0RF
Discontinued
losartan 25 mg Tablet
25 mg PO DAILY
Discharge Orders:
Discharge Patient (As Directed); Ordered 05/19/24
Ordered By: Rory Garcia
Discharge Date and Time
Print Language: ESTONIAN
[2024-05-19 15:53] VITALS: BP 116/71
== END 2024-05-19 16:07 | disposition home or self-care (01) | DRG 69 ==
LOC: 4 WEST ACU 22:28
PROVIDERS: Registered Nurse; ADMITTING PHYSICIAN Hospitalist; ATTENDING PHYSICIAN Family Medicine; CONSULT PHYSICIAN Internal Medicine Cardiovascular Disease; CONSULT PHYSICIAN Psychiatry & Neurology Neurology; EMERGENCY PHYSICIAN Student in an Organized Health Care Education/Training Program; FAMILY PHYSICIAN Emergency Medicine
DX: G45.9 Transient cerebral ischemic attack, unspecified (principal); R47.01 Aphasia; I48.0 Paroxysmal atrial fibrillation; I10 Essential (primary) hypertension; I35.1 Nonrheumatic aortic (valve) insufficiency; Z79.899 Other long term (current) drug therapy; Z87.891 Personal history of nicotine dependence
CPT/HCPCS: 70450; 70496; 70498; 70551; 80048; 80053; 80061; 82962; 83036; 84443; 84484; 85025; 85027; 85610; 85730; 92610; 93005; 93306; 97163; 97166; 99291; Q9967

== ENCOUNTER → 2024-06-30 07:58 | Outpatient (REF) | payer MEDICARE, OTHER, SELFPAY | LOC: DHCBC/DCA 07:58 | PROVIDERS: ATTENDING PHYSICIAN Internal Medicine Cardiovascular Disease; FAMILY PHYSICIAN Emergency Medicine | DX: G45.9 Transient cerebral ischemic attack, unspecified (principal); I48.19 Other persistent atrial fibrillation | CPT/HCPCS: 78452; 93017; A9500; J2785 ==

== ENCOUNTER 2024-07-09 08:43 | Day surgery (SDC) | payer MEDICARE, OTHER, SELFPAY ==
--- NOTE | 2024-07-09 11:20 | ITS.CL.CARDI ---
City Recorder - Cardioversion
Cardioversion
Procedure Report:
Date of Procedure: July 09 2024
Procedure: Cardioversion
Indication: Symptomatic atrial fibrillation
Performing Physician: Dayo Davies DO, FACC
Technique: The patient was brought to the holding area. Signed informed consent was obtained. A time out was called and performed. The patient was anesthetized by the anesthesia service. Anticoagulation status was reviewed and appropriate. R2 pads
were placed anteriorly and posteriorly. Following successful MADDI, a 200 J synchronized biphasic shock restored normal sinus rhythm without significant bradycardia. There were no complications.
Conclusion: Uncomplicated cardioversion from atrial fibrillation to sinus rhythm.
Recommendation: Routine post cardioversion care. 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
== END 2024-07-09 11:15 | disposition home or self-care (01) ==
LOC: CATH 08:43
PROVIDERS: ATTENDING PHYSICIAN Nuclear Medicine Nuclear Cardiology; FAMILY PHYSICIAN Emergency Medicine; OTHER PHYSICIAN Internal Medicine Cardiovascular Disease
DX: I08.3 Combined rheumatic disorders of mitral, aortic and tricuspid valves (principal); I48.91 Unspecified atrial fibrillation; I10 Essential (primary) hypertension; Z79.01 Long term (current) use of anticoagulants
CPT/HCPCS: 93312; 93320; 93325; 92960; 93005

== ENCOUNTER 2024-11-06 05:55 | Day surgery (SDC) | payer MEDICARE, OTHER, SELFPAY ==
[2024-11-06] VITALS (23 sets, daily range): BP systolic 100–136; BP diastolic 57–114; BMI 28.5
--- NOTE | 2024-11-06 06:50 | PTCARENOTE ---
Pt is here for a PVI. Pt's blood pressure on right arm is 136/114. Left arm is 134/100. Pt states he did not take his metoprolol this morning. Dr Zazueta, anesthesiologist, made aware. No treatment ordered at this time. Will continue to monitor.
[2024-11-06 08:43] LABS: ACT-LR - POC 268 Seconds (116-155)
[2024-11-06 09:03] LABS: ACT-LR - POC 297 Seconds (116-155)
[2024-11-06 09:23] LABS: ACT-LR - POC 287 Seconds (116-155)
--- NOTE | 2024-11-06 09:37 | ITS.CL.ABL ---
Taxi Driver Supervisor - Ablation
Ablation
Procedure Report:
ELECTROPHYSIOLOGY ABLATION STUDY
DATE:: November 06, 2024�����������������������������REFERRING: Dr. Andreas Richardson
INDICATION: Persistent supraventricular tachycardia in the form of atrial fibrillation.��Recent stroke and mildly diminished ejection fraction
HISTORY: See H and P.��As above
ANTIARRHYTHMIC DRUG: Metoprolol
PRE-PROCEDURE MADDI: No atrial thrombus
PRESENTING RHYTHM: A-fib
'TIME-OUT':��called and confirmed.
SEDATION/ANESTHESIA:��provided via the anesthesia department using general anesthesia (LMA).
INTRAVENOUS/ARTERIAL ACCESS:
Right femoral venous - 8Fr
Left femoral venous - 8 Fr, 6 Fr
Ultrasound guidance for bilateral femoral vein access was utilized by me to obtain access with demonstration of normal anatomy
CHADS-VASC Score: Age greater than 75, stroke
HAS-Bled Score
PROCEDURE:
1.��A decapolar CS catheter was placed within the CS for mapping and pacing.��This was also used as the reference catheter for the 3-D map.
2. The intracardiac ultrasound catheter was positioned in the RA to identify the FO for targeting of transseptal puncture, assist��in identification of the pulmonary vein ostia, monitoring pre and post ablation pulmonary vein flow velocities,
monitoring for 'bubble' formation during RF application as a sign of thermal injury,��and to monitor for pericardial effusion during mapping and ablation procedure.���Left atrial size, LV ejection fraction, and pulmonary vein flows were monitored
pre and post ablation procedure. The other valves were inspected and found to be free of significant regurgitation or stenosis.
3.��Half of the calculated heparin bolus was administered prior to the first transeptal puncture.��Transseptal puncture was performed to diagnose RA and LA pressure so that safety of LA mapping and ablation could be further assessed, and to access
the left atrium and pulmonary veins for mapping and ablation.��This entailed advancing an 16 Romansh needle�sheath with dilator into the superior vena cava and withdrawing both (monitoring intracardiac ultrasound, fluoroscopy and tip pressure) with
the tip oriented toward the atrial septum.��The fossa ovalis was engaged (indicated by sudden displacement of the sheath tip as well as tenting of the fossa seen on intracardiac ultrasound).��Left atrial access required a pass with the [place]
needle extended.��Left atrial catheter position was confirmed by pressure monitoring (RA mean pressure 8 mm Hg and LA mean presure 14 mm Hg), LA saturation (99%),��as well as fluoroscopy.��The sheath was advanced over the dilator and positioned in
the left atrium.��This procedure was repeated for the Agilis sheath.��The remainder of the calculated heparin bolus was administered and heparin was
infused to maintain ACT at 300 -350 seconds throughout the case.
4.��RA pacing was performed via the proximal decapolar poles and LA pacing was performed via the distal decapolr poles.
5. A quadrapolar catheter was first positioned at the His position for His Bundle recording which was tagged via the 3-D Navex sytem, and then passed to the RVA for RV pacing and recording.
6. The multipolar catheter and the PFA catheter were placed in each of the LIPV, LSPV, RSPV and the RIPV.��
7.��Next, a 3-D map was created using Navex.���A 3-D reconstructed CT image was compared to the 3-D Navex map to assist in anatomic interpretation, mapping and ablation.��The CT image and the NavX image were fused.
8. A total of 126 lesions were given to the pulmonary veins and the left atrial posterior wall and floor. Patient was cardioverted to sinus rhythm. Entrance and exit block was confirmed in all 4 pulmonary veins and the posterior wall 1.5 cm below
the inferior veins to the left atrial floor. Multipolar mapping demonstrated a small area of fractionated signal on the anterior ridge of the left inferior pulmonary vein and additional lesions were given in this region. EP study with stimulation
was performed post procedure with atrial extrastimuli and burst pacing which demonstrated no other mechanisms of tach arrhythmia inducible.
9. Normal sinus node and AV angel function noted.
TOTAL FLOURO TIME: 15.6 minutes
TOTAL RF DURATION: 0 minutes
REVERSAL OF HEPARIN: 35 mg of protamine, slow IV administration
COMPLICATIONS:
None
Intracardiac US shows no pericardial effusion post ablation.
SUMMARY:��
Complex left atrial mapping and ablation.
Isolation of all 4 pulmonary veins and the left atrial posterior wall as above
RECOMMENDATIONS:
1. Ambulate in 4 hours
2. Resume anticoagulation
3.��Consider same-day discharge
4.� Out of bed 4 hours
Copy to: Dr. Tad Richardson
--- NOTE | 2024-11-06 13:20 | PTCARENOTE ---
Dr Richardson at pt bedside speaking to pt and pt's .
--- NOTE | 2024-11-06 14:02 | W.PN.UPDATE ---
Update Note
Progress Note Update
79 yo WM s/p PVI (same day) He denies cp, sob, neto diet, EKG SR, b/l groins c/d/i no HT, soft. He will resume Eliquis tonight. Activity restrictions reviewed. He will f/u Dr. Richardson in 3 mo. He is for d/c home after 230p if groins stable and able
to void.
SUMMARY:��
Complex left atrial mapping and ablation.
Isolation of all 4 pulmonary veins and the left atrial posterior wall as above
RECOMMENDATIONS:
1. Ambulate in 4 hours
2. Resume anticoagulation
3.��Consider same-day discharge
4.� Out of bed 4 hours
[2024-11-06] MEDS: ANESTHETIC LOZENGE 1 LOZENGE PO (14:25)
== END 2024-11-06 14:30 | disposition home or self-care (01) ==
LOC: CATH 05:55
PROVIDERS: ATTENDING PHYSICIAN Internal Medicine Cardiovascular Disease; FAMILY PHYSICIAN Emergency Medicine
DX: I48.91 Unspecified atrial fibrillation (principal); Z79.01 Long term (current) use of anticoagulants; Z79.899 Other long term (current) drug therapy
CPT/HCPCS: C1732; C1894; C1730; C1769; C1892; C1759; C1733; 85347; 86900; 86901; 93005; 93656; 93657; C1766

== ENCOUNTER 2025-01-03 09:22 | Emergency (ER) | payer MEDICARE, OTHER, SELFPAY ==
[2025-01-03 09:29] VITALS: BP 162/78
--- NOTE | 2025-01-03 11:06 | ED.GENMED ---
History of Present Illness
General
Chief Complaint: Musculo-Skeletal Complaint
Time Seen by Provider: 01/03/25 10:36
History of Present Illness
History of Present Illness:
Patient is a 79-year-old man presenting to the emergency department with numbness tingling to the outer right leg. Patient states that 2 months ago he had an A-fib ablation where the access was his groin. He states that the swelling has completely
resolved since then. For the past week he has had intermittent paresthesias to the outer right leg that sometimes radiates to the front of his leg down to his knee. He does state that this usually occurs when he puts weight on his leg. No back
pain. He did have a prior discectomy at the L4 level and they did tell him there were degenerative changes in the other disc. He denies any trauma. No back pain. No fevers chills. No saddle anesthesia or urinary incontinence. No no weakness.
No speech changes. No problems with his upper extremities. Patient states that he thought it was meralgia paresthetica and they did try some exercises at home.
Phy Exam
Physical Exam
Physical Exam:
GENERAL: in no acute distress
HEENT: normocephalic, extraocular movements intact, moist oral mucosa
NECK: normal inspection
RESPIRATORY: no respiratory distress, clear to auscultation bilaterally
CARDIOVASCULAR: regular rate and rhythm
ABDOMEN/: soft, non-distended, non-tender to palpation, no rebound or guarding, no palpable hematoma or swelling
EXTREMITIES: non-tender, no edema/swelling
NEUROLOGIC: awake and alert, moves all extremities, equal strength in upper and lower extremities, no sensory deficits in the lower extremities. 5 out of 5 strength in lower extremities
SKIN: warm
Course
Orders/Labs/Results
Orders:
Orders
01/03/25 11:02
Prednisone [Deltasone] 50 mg PO NOW STA
Vital Signs
Initial and Last Documented VS:
Initial Vital Signs
Temp Pulse Resp BP Pulse Ox
98.8 F 56 18 162/78 100
01/03/25 09:29 01/03/25 09:29 01/03/25 09:29 01/03/25 09:01/03/25 09:29
Last Documented Vital Signs
Temp Pulse Resp BP Pulse Ox
98.8 F 56 18 162/78 100
01/03/25 09:29 01/03/25 09:29 01/03/25 09:29 01/03/25 09:29 01/03/25 09:29
MDM/Problems Addressed
Differential Diagnosis Includes:
Patient is a 79-year-old male with history of A-fib status post ablation still on Eliquis, metoprolol, hypertension, hyperlipidemia presenting to the emergency department with paresthesias to the outer leg. Vitals are unremarkable and exam does not
show any sensory deficits or any weakness. He does have known degenerative disc disease. No red flags to suggest cauda equina or discitis or epidural abscess. No obvious rash to suggest shingles. The paresthesias when they do occur are
dermatomal (L2 and L3) and usually only occur when he places weight on his leg. Likely neuropathy. I did consider CVA however the symptoms are intermittent and are incited by an event so less likely. Will start patient on prednisone. Strict
return precautions given to patient to include weakness, urinary incontinence/retention, saddle anesthesia, or signs and symptoms of a stroke. Patient will follow-up with patient with PCP. Will discharge at this time.
*Critical Care Note
Total Time (30-74mins, 75-104mins- exclusive of procedures): Not Applicable
ED Attending Note
-
Portions of this chart may have been created with voice recognition software.� Occasional wrong word or��sound alike� substitutions may have occurred due to the inherent limitations of voice recognition software.
Discharge Plan
Departure
Patient Disposition: Home (Routine Discharge)
Date of Disposition: 01/03/25
Time of Disposition: 11:03
Patient with high blood pressure during this ER visit?: No
Discharge Problem:
Neuropathy
Instructions: Exercises for sciatic pain, Radiculopathy of the neck and back (including sciatica) - Discharge instructions
Prescriptions:
New
prednisone 20 mg tablet
40 mg PO DAILY 4 Days Qty: 8 0RF
Rx Instructions:
start tomorrow 01/04
No Action
Eliquis 5 mg Tablet
5 mg PO BID Qty: 60 11RF
metoprolol succinate 25 mg Tablet Extended Release 24 Hr
25 mg PO DAILY Qty: 30 11RF
atorvastatin 40 mg Tablet
40 mg PO QPM Qty: 30 0RF
losartan 25 mg Tablet
25 mg PO QPM
Mucinex DM
1 tab PO DAILYPRN PRN (Reason: congestion)
Interventions
Interventions:
*General Assessment Last Done: 01/03/25 10:51
*Neglect/Abuse Screening Last Done: 01/03/25 10:51
ED- Fall Risk Assessment Last Done: 01/03/25 10:51
*ED COVID-19 Vaccine History Last Done: 01/03/25 10:51
ED-Musculoskeletal Assessment Last Done: 01/03/25 10:51
Discharge Date and Time
Print Language: SYRIAN
[2025-01-03] MEDS: DELTASONE 50 MG PO (11:29)
== END 2025-01-03 11:43 | disposition home or self-care (01) ==
LOC: EMR 09:22
PROVIDERS: EMERGENCY PHYSICIAN Student in an Organized Health Care Education/Training Program; FAMILY PHYSICIAN Emergency Medicine
DX: G62.9 Polyneuropathy, unspecified (principal); I48.91 Unspecified atrial fibrillation; I10 Essential (primary) hypertension; E78.5 Hyperlipidemia, unspecified; Z79.01 Long term (current) use of anticoagulants; Z98.890 Other specified postprocedural states; Z88.8 Allergy status to other drugs, medicaments and biological substances
CPT/HCPCS: 99283

== ENCOUNTER → 2025-01-19 08:37 | Outpatient (REF) | payer MEDICARE, OTHER, SELFPAY | LOC: HWRAD 08:37 | PROVIDERS: ATTENDING PHYSICIAN Internal Medicine Critical Care Medicine; FAMILY PHYSICIAN Emergency Medicine | DX: R91.1 Solitary pulmonary nodule (principal) | CPT/HCPCS: 71250 ==

== ENCOUNTER → 2025-02-10 09:00 | Outpatient (REF) | payer MEDICARE, OTHER, SELFPAY ==
[2025-02-10 10:29] LABS: Blood Urea Nitrogen 9 mg/dl (9-20)
== END ==
LOC: REG 09:00
PROVIDERS: ATTENDING PHYSICIAN Physical Medicine & Rehabilitation; FAMILY PHYSICIAN Emergency Medicine
DX: Z98.890 Other specified postprocedural states (principal)
CPT/HCPCS: 36415; 82565; 84520

== ENCOUNTER → 2025-02-20 17:38 | Outpatient (REF) | payer MEDICARE, OTHER, SELFPAY | LOC: MRI 3T 17:38 | PROVIDERS: ATTENDING PHYSICIAN Physical Medicine & Rehabilitation; FAMILY PHYSICIAN Emergency Medicine | DX: Z98.890 Other specified postprocedural states (principal); M54.30 Sciatica, unspecified side | CPT/HCPCS: 72158; A9575 ==

== ENCOUNTER → 2025-05-04 08:04 | Outpatient (REF) | payer MEDICARE, OTHER, SELFPAY ==
[2025-05-04 08:55] LABS: Hemoglobin 13.4 g/dL (13.0-18.0); Mean Corp Hgb Conc. 35.3 g/dL (33.0-37.0); Mean Corpuscular Volume 93.6 fL (80.0-94.0); Mean Platelet Volume 8.9 fL (7.4-10.4); Platelet Count 150 10^3/uL (130-400); Red Blood Cell Count 4.06 10^6/uL (4.70-6.10); White Blood Cell Count 5.2 10^3/uL (4.8-10.8)
[2025-05-04 09:29] LABS: ALT (SGPT) 19 U/L (0-50); AST (SGOT) 21 U/L (17-59); Albumin 3.9 g/dl (3.5-5.0); Alkaline Phosphatase 67 U/L (38-126); Blood Urea Nitrogen 12 mg/dl (9-20); Calcium 8.7 mg/dl (8.4-10.2); Carbon Dioxide 25 mmol/L (22-30); Chloride 112 mmol/L (98-107); Glucose 97 mg/dl (70-99); Potassium 4.3 mmol/L (3.5-5.1); Sodium 142 mmol/L (135-145); Total Bilirubin 0.7 mg/dl (0.2-1.3); Total Protein 6.1 g/dl (6.3-8.2); eGFR > 60.00
== END ==
LOC: SDSPAT 08:04
PROVIDERS: ATTENDING PHYSICIAN Orthopaedic Surgery Orthopaedic Surgery of the Spine; FAMILY PHYSICIAN Emergency Medicine; OTHER PHYSICIAN Internal Medicine Cardiovascular Disease
DX: Z01.818 Encounter for other preprocedural examination (principal)
CPT/HCPCS: 80053; 85027; 86850; 86900; 86901; 87070; 93005

== ENCOUNTER 2025-05-13 06:04 | Day surgery (SDC) | payer MEDICARE, OTHER, SELFPAY ==
[2025-05-04 08:12] VITALS: BMI 28.2
[2025-05-06 08:34] VITALS: BMI 28.2
[2025-05-13] VITALS (18 sets, daily range): BP systolic 115–160; BP diastolic 67–84; PULSE 71; O2SAT 97; BMI 28.0
[2025-05-13] MEDS: TYLENOL 1000 MG PO ×4 (06:49→23:15)
[2025-05-13] MEDS: LYRICA 150 MG PO (06:51)
[2025-05-13] MEDS: CELEBREX 200 MG PO (06:51)
[2025-05-13] MEDS: METHOCARBAMOL 1500 MG PO (06:51)
[2025-05-13] MEDS: NORMOSOL-R/PLASMALYTE-A 1000 IV ×3 (07:01→23:15)
--- NOTE | 2025-05-13 11:55 | W.PN.UPDATE ---
Update Note
Progress Note Update
Lumbar stenosis with neurogenic claudication s/p L4-L5 PSF w/ possible L5-S1 PSF w/ Dr Calderón 05/13/25
- Pt will need brace
- s/p L4-L5 microdiscectomy, remote, by Dr. Cavazos
DVT prophylaxis - b/l SCDs/TEDs
HTN - + parameters - monitor BP
Persistent a fib s/p 06/2024 CV and 10/2024 ablation - monitor on tele
- Continue BB
- Resume Eliquis POD 5 if hemodynamically stable
NICM, mildly reduced EF - reduce hourly IVF rate to prevent fluid overload
COPD and pulmonary nodules - monitor O2
- IS
HLD
Mild coronary artery disease
Abdominal aortic ectasia, 2.9 cm on MRI 02/2025; due for repeat ultrasound 08/2025
Mild-moderate valvular disease
Colon polyps
TIA 05/2024
H/o remote tobacco abuse
Daily alcohol - 1 drink reported daily
[2025-05-13] MEDS: COLACE 100 MG PO ×2 (13:08→19:50)
[2025-05-13] MEDS: SENOKOT 17.2 MG PO ×2 (13:11→19:50)
[2025-05-13] MEDS: ANCEF 5 IV ×2 (15:19→23:15)
[2025-05-13] MEDS: COZAAR 25 MG PO (18:05)
[2025-05-13] MEDS: LIPITOR 40 MG PO (18:05)
[2025-05-13] MEDS: ULTRAM 50 MG PO ×2 (18:06→23:15)
[2025-05-13] MEDS: LYRICA 75 MG PO (19:50)
[2025-05-14 03:05] VITALS: BP 124/70
[2025-05-14] MEDS: TYLENOL 1000 MG PO (05:52)
[2025-05-14] MEDS: ULTRAM 50 MG PO (05:52)
[2025-05-14 06:40] LABS: Hematocrit 37.4 % (39.0-52.0); Hemoglobin 13.5 g/dL (13.0-18.0)
[2025-05-14 07:07] LABS: Blood Urea Nitrogen 15 mg/dl (9-20); Calcium 8.4 mg/dl (8.4-10.2); Carbon Dioxide 23 mmol/L (22-30); Chloride 109 mmol/L (98-107); Estimated Creatinine Clearance 95 ml/min; Glucose 115 mg/dl (70-99); Potassium 4.2 mmol/L (3.5-5.1); Sodium 138 mmol/L (135-145); eGFR > 60.00
--- NOTE | 2025-05-14 08:11 | W.PN.SP ---
Today's Communication / Plan
-
s/p PSF with instrumentation
Doing well
PT
D/c home
Subjective / Objective
Subjective Data
PT doing well
Legs better
Back feels ok
Objective Data
Vital Signs
Temp Pulse Resp BP Pulse Ox
97.7 F 76 18 124/70 95
05/14/25 03:05 05/14/25 03:05 05/14/25 03:05 05/14/25 03:05 05/14/25 03:05
Intake and Output
05/13/25 05/14/25 05/15/25
06:59 06:59 06:59
Intake Total 2880 / 2880
Balance 2880 / 2880
Intake:
Oral fluids 1920 / 0
IV fluids (Total) 960 / 960
Other:
Number of approximated MODERATE 3
amounts of urine
Lab Data
05/14/25 05:49
05/14/25 05:49
Physical Exam
-
MOving both LE good strength
--- NOTE | 2025-05-14 08:28 | CM ---
CM reviewed medical records. Patient lives independently with . Patient does not have a history of VN or SNF. Patient has been to outpatient PT at [facility]. Patient is active with his PCP. Patient will use [facility] in [place].
Plan: Home with , outpatient PT when medically cleared.
[2025-05-14 08:30] VITALS: BP 132/72
[2025-05-14 09:02] VITALS: BP 162/72; PULSE 71
[2025-05-14] MEDS: LYRICA 75 MG PO (09:12)
[2025-05-14] MEDS: TOPROL XL 25 MG PO (09:12)
[2025-05-14] MEDS: COLACE 100 MG PO (09:12)
[2025-05-14] MEDS: SENOKOT 17.2 MG PO (09:13)
--- NOTE | 2025-05-14 09:14 | W.PN.ORTHO ---
Today's Communication / Plan
-
Await PT and OT recs.
D/c later today if remaining clinically stable.
Assessment
.
Distal Motor Intact: Yes
Dressing:
Clean, dry and intact.
Assessment:
Lumbar stenosis with neurogenic claudication s/p L4-L5 PSF w/ Dr Calderón 05/13/25
- Pt will need brace
- s/p L4-L5 microdiscectomy, remote, by Dr. Cavazos
DVT prophylaxis - b/l SCDs/TEDs
HTN - + parameters - BPs overall stable
Persistent a fib s/p 06/2024 CV and 10/2024 ablation - maintaining NSR on tele
- Continue BB
- Resume Eliquis POD 5 if remaining hemodynamically stable
NICM, mildly reduced EF - reduced hourly IVF rate to prevent fluid overload
- Daily weights stable
COPD and pulmonary nodules - O2 stable on RA
- IS
HLD
Mild coronary artery disease
Abdominal aortic ectasia, 2.9 cm on MRI 02/2025; due for repeat ultrasound 08/2025
Mild-moderate valvular disease
Colon polyps
TIA 05/2024
H/o remote tobacco abuse
Daily alcohol - 1 drink reported daily
Pain meds sent pre-op by Janell Crane PA-C. These meds include Oxycodone 5 mg, 1-2 tabs p.o. q6hprn for mod-severe pain and Tizanidine 2 mg p.o. q8hprn for muscle spasms
Plan
.
Surgery / Date: L4-L5 PSF w/ Dr Calderón 05/13/25
DVT Prophylaxis: Other (b/l SCDs/TEDS)
Activity:
Out of bed.
PT/OT
Discharge Plan: Home
Subjective
.
.:
Patient resting comfortably sitting on edge of bed.
Low back pain minimal. Denies any new significant complaints.
Eager for potential d/c today.
Vital Signs and Labs
.
Vital Signs and Labs:
Lab Results
05/14/25 05:49
05/14/25 05:49
Temp Pulse Resp BP Pulse Ox
97.7 F 76 18 124/70 95
05/14/25 03:05 05/14/25 03:05 05/14/25 03:05 05/14/25 03:05 05/14/25 03:05
Physical Exam
-
HEENT: No pallor, cyanosis, or jaundice. Throat clear.
NECK: Supple. No JVD.
RESPIRATORY: Lungs clear to auscultation.
CVS: S1, S2 normal. RRR.�
ABDOMEN: Soft, non-tender. No distension.
EXTREMITIES: Strength equal, no calf pain with palpation/dorsiflexion. Calves soft.
COMPOUND WORKER: AOx3. No focal deficits. communications billing analyst grossly intact
--- NOTE | 2025-05-14 09:21 | W.DS.TRANS ---
DC Summary - [facility]
-
Discharge Instructions:
Sleep Apnea Risk Intermediate
Discharge Diagnosis/Procedures Lumbar stenosis with neurogenic claudication s/p
L4-L5 posterior spinal fusion w/ Dr Calderón 05/13/25
Diet Regular
Additional Diets Adequate hydration and minimize opioids to
prevent low blood pressure/dizziness.
Activity As tolerated
Additional Activity No heavy lifting >10 lbs
Driving Restrictions Not until seen by your Dr
Bathing Restrictions OK to shower in 4 days
Specialty Instructions Weigh Daily
Instructions:
Stand-Alone Forms: [facility] Lumbar D/C Inst.
Changes to Home Medications: Yes
Discharge Medications:
DC Medications w/original date entered in [facility]
apixaban 5 mg tablet (Eliquis) 5 mg PO BID Blood clot prevention/tx #60 tabs 05/19/24
Held on 05/14/25. Instructions: Resume on 05/18/25.
atorvastatin 40 mg tablet 40 mg PO QPM #30 tabs 05/19/24
metoprolol succinate 25 mg tablet,extended release 24 hr 25 mg PO DAILY Arrhythmia #30 tabs 05/19/24
Mucinex DM 1 tab PO DAILYPRN PRN congestion 11/06/24
Saccharomyces boulardii 250 mg capsule (Florastor) 250 mg PO BID #10 caps 05/14/25
acetaminophen 650 mg tablet,extended release 1,300 mg (2 x 650 mg) PO Q8H #60 tabs 05/14/25
cephalexin 500 mg capsule 500 mg PO Q6H #20 caps 05/14/25
docusate sodium 100 mg capsule 100 mg PO BID #30 caps 05/14/25
losartan 25 mg tablet 25 mg PO QPM #1 tab 05/14/25
ondansetron HCl 4 mg tablet 4 mg PO Q6H PRN nausea and vomiting #30 tabs 05/14/25
oxycodone 5 mg tablet 5 - 10 mg (1 - 2 x 5 mg) PO Q6H PRN moderate-severe pain #30 tabs 05/14/25
sennosides 8.6 mg tablet (Maria Ines-jess) 17.2 mg (2 x 8.6 mg) PO BID #30 tabs 05/14/25
tizanidine 2 mg tablet 2 mg PO Q8H PRN muscle spasms #30 tabs 05/14/25
Home Medication Changes
Saccharomyces boulardii 250 mg capsule (Florastor) 250 mg PO BID #10 caps 05/14/25
acetaminophen 650 mg tablet,extended release 1,300 mg (2 x 650 mg) PO Q8H #60 tabs 05/14/25
cephalexin 500 mg capsule 500 mg PO Q6H #20 caps 05/14/25
docusate sodium 100 mg capsule 100 mg PO BID #30 caps 05/14/25
ondansetron HCl 4 mg tablet 4 mg PO Q6H PRN nausea and vomiting #30 tabs 05/14/25
oxycodone 5 mg tablet 5 - 10 mg (1 - 2 x 5 mg) PO Q6H PRN moderate-severe pain #30 tabs 05/14/25
sennosides 8.6 mg tablet (Maria Ines-jess) 17.2 mg (2 x 8.6 mg) PO BID #30 tabs 05/14/25
tizanidine 2 mg tablet 2 mg PO Q8H PRN muscle spasms #30 tabs 05/14/25
Pending Results: No
[2025-05-14 11:15] VITALS: BP 158/74
== END 2025-05-14 11:20 | disposition home or self-care (01) ==
LOC: SDS 06:04
PROVIDERS: Physician Assistant; ATTENDING PHYSICIAN Orthopaedic Surgery Orthopaedic Surgery of the Spine; FAMILY PHYSICIAN Emergency Medicine
DX: M48.062 Spinal stenosis, lumbar region with neurogenic claudication (principal); M41.86 Other forms of scoliosis, lumbar region; Z98.890 Other specified postprocedural states
CPT/HCPCS: 22612; 22614; 22840; C1776; 72100; 76000; 80048; 85014; 85018; 97116; 97162; 97166; 97535; C1713

== ENCOUNTER → 2025-10-31 08:28 | Outpatient (REF) | payer MEDICARE, OTHER, SELFPAY | LOC: RAD 08:28 | PROVIDERS: ATTENDING PHYSICIAN Internal Medicine Critical Care Medicine; FAMILY PHYSICIAN Emergency Medicine | DX: R91.1 Solitary pulmonary nodule (principal) | CPT/HCPCS: 71250 ==